=== PATIENT | male | born 1985 | race Caucasian/White ===

== ENCOUNTER 2020-09-14 15:22 | Emergency (ER) | payer SELFPAY ==
[~2020-09-14] VITALS: Ht 185.4 cm; Wt 106.5 kg
[2020-09-14] MEDS ORDERED: KETAMINE 10 MG/ML, 20ML IV ONE (15:45)
[2020-09-14] MEDS ORDERED: HYDROmorphone 1 MG/ML, 1ML INJ ONE ×2 (15:52→17:26)
[2020-09-14] MEDS ORDERED: KETAMINE 10 MG/ML, 20ML ONE (15:52)
[2020-09-14] MEDS ORDERED: KETOROLAC 30 MG/1 ML ONE (15:52)
[2020-09-14] MEDS: HYDROmorphone 1 MG/ML, 1ML INJ IVPush PRN ×2 (15:57→17:28)
[2020-09-14] MEDS ORDERED: KETOROLAC 30 MG/1 ML IVPush ONE (16:00)
[2020-09-14] MEDS ORDERED: SODIUM CHLORIDE 0.9% 1,000ML IVBOLUS ONE (16:00)
[2020-09-14] MEDS ORDERED: SODIUM CHLORIDE FLUSH 10ML SYR IVF ONE (16:00)
[2020-09-14] MEDS ORDERED: ONDANSETRON 2MG/ML, 2ML ONE (16:09)
--- NOTE | 2020-09-14 16:12 | NUR ---
PT OFF UNIT IN IMAGING. TOLERATED MEDICATIONS WELL.
[2020-09-14 16:14] LABS: BASOPHILS % (AUTO) 0 % (0-1); EOSINOPHILS % (AUTO) 1 % (1-7); LYMPHOCYTES % (AUTO) 15 % (22-44); MD SCAN; MEAN CORPUSCULAR HEMOGLOBIN 29.4 pg (27.5-34.5); MEAN CORPUSCULAR HGB CONC 33.6 g/dL (33.2-36.2); MEAN PLATELET VOLUME 8.9 fL (7.4-10.4); MONOCYTES % (AUTO) 6 % (2-9); NEUTROPHILS % (AUTO) 78 % (42-75); PLATELET COUNT 286 x10^3/uL (130-400); RED CELL DISTRIBUTION WIDTH 13.4 % (9.4-14.8)
[2020-09-14 16:15] LABS: ALANINE AMINOTRANSFERASE 46 U/L (12-78); ALBUMIN 4.7 g/dL (3.4-5.0); ANION GAP 7 mmol/L (5-15); CALCIUM 9.3 mg/dL (8.5-10.1); CHLORIDE 108 mmol/L (98-107); CREATININE 1.49 mg/dL (0.7-1.3)
[2020-09-14 16:18] LABS: ALKALINE PHOSPHATASE 80 U/L (45-117); BILIRUBIN,TOTAL 0.6 mg/dL (0.2-1.0); TOTAL PROTEIN 8.3 g/dL (6.4-8.2)
--- NOTE | 2020-09-14 16:43 | NUR ---
PT AMBULATED TO [facility] TO ATTEMPT UA SAMPLE. TOLERATING WELL.
--- NOTE | 2020-09-14 16:56 | NUR ---
PT AMBULATED BACK TO ROOM. ATTCHED BACK TO MONITORS. VSS. OBTAINED UA
[2020-09-14 17:09] LABS: MICROSCOPIC INDICATED
--- NOTE | 2020-09-14 17:31 | NUR ---
PT COMPLAINING 10/10 PAIN. GAVE DILAUDID AND T FEELING MILDLY BETTER.
[2020-09-14] MEDS ORDERED: LORazepam 2 MG/ML, 1ML ONE (17:40)
[2020-09-14] MEDS ORDERED: FENTANYL PF 100 MCG/2ML ONE (17:40)
[2020-09-14] MEDS: FENTANYL PF 100 MCG/2ML IVPush ONE (17:45)
[2020-09-14] MEDS ORDERED: LORazepam 2 MG/ML, 1ML IVPush ONE (18:00)
--- NOTE | 2020-09-14 18:30 | NUR ---
PT A&OX4. PT PAIN IS 4/10 NOW. PT IN A LOT LESS DISTRESS THAN EARLIER. VSS. ATTACHEED TO ALL MONITORS. BREATHING EVEN AND UNLABORED. BED IN LOW POSITION. MOM AT BEDSIDE. CALL LIGHT WITHIN REACH.
[2020-09-14] MEDS ORDERED: LEVOFLOXACIN 750 MG TABLET PO ONE (19:00)
[2020-09-14] MEDS ORDERED: LEVOFLOXACIN 750 MG TABLET ONE (19:05)
[2020-09-14 19:24] VITALS: BP 144/66
== END 2020-09-14 19:34 | disposition home or self-care (01) ==
LOC: ED 19:09
DX: N13.2 Hydronephrosis with renal and ureteral calculous obstruction (principal); F17.200 Nicotine dependence, unspecified, uncomplicated
CPT/HCPCS: 36415; 74176; 80053; 81001; 85025; 87086; 96361; 96374; 96375; 96376; 99285; J1170; J1885; J2060; J3010; J7030